=== PATIENT | female | born 1985 | race African-American/Black ===

== ENCOUNTER 2016-08-19 10:25 | Emergency (ER) | payer SELFPAY ==
[~2016-08-19] VITALS: Ht 165.1 cm; Wt 81.2 kg
[~2016-08-19 10:25] MED LIST: NAPR550T PO; ORPH100T PO
[2016-08-19 10:31] VITALS: BP 104/64
[2016-08-19] MEDS ORDERED: CYCL10TA2 PO (11:16)
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
== END 2016-08-19 11:23 | disposition home or self-care (01) ==
LOC: ER 10:42
DX: M54.5 Low back pain (principal); Z88.8 Allergy status to other drugs, medicaments and biological substances; V43.52XA Car driver injured in collision with other type car in traffic accident, initial encounter; Y93.89 Activity, other specified; Y99.8 Other external cause status; Y92.488 Other paved roadways as the place of occurrence of the external cause
CPT/HCPCS: 99283

== ENCOUNTER 2016-12-09 11:15 | Emergency (ER) | payer SELFPAY ==
[~2016-12-09] VITALS: Ht 165.1 cm; Wt 81.6 kg
[~2016-12-09 11:15] MED LIST changes: +CYCL10TA2 PO; +NAPR-682 PO; -NAPR550T PO
[2016-12-09 12:26] VITALS: BP 116/76
[2016-12-09] MEDS ORDERED: AMOX500C PO (13:12)
--- NOTE | 2016-12-09 13:12 | PHYS DOC ---
Past Medical History Past Medical History: Other Additional Past Medical Histor: heart murmur Past Surgical History: No Surgical History Alcohol Use: Occasionally Drug Use: None Adult General Chief Complaint Chief Complaint: TOOTH ACHE OR PAIN [facility] HPI Patient is a 31 year old [f__sex] who presents with [] Review of Systems Review of Systems Constitutional: Denies fever or chills [] Eyes: Denies change in visual acuity, redness, or eye pain [] HENT: Denies nasal congestion or sore throat [] Respiratory: Denies cough or shortness of breath [] Cardiovascular: No additional information not addressed in HPI [] GI: Denies abdominal pain, nausea, vomiting, bloody stools or diarrhea [] : Denies dysuria or hematuria [] Musculoskeletal: Denies back pain or joint pain [] Integument: Denies rash or skin lesions [] Neurologic: Denies headache, focal weakness or sensory changes [] Endocrine: Denies polyuria or polydipsia [] Allergies Allergies Allergies Coded Allergies Type Severity Reaction Last Updated Verified ibuprofen Allergy Intermediate hives 07/29/14 Yes Physical Exam Physical Exam Constitutional: Well developed, well nourished, no acute distress, non-toxic appearance. [] HENT: Normocephalic, atraumatic, bilateral external ears normal, oropharynx moist, no oral exudates, nose normal. [] Eyes: PERRLA, EOMI, conjunctiva normal, no discharge. [] Neck: Normal range of motion, no tenderness, supple, no stridor. [] Cardiovascular:Heart rate regular rhythm, no murmur [] Lungs & Thorax: Bilateral breath sounds clear to auscultation [] Abdomen: Bowel sounds normal, soft, no tenderness, no masses, no pulsatile masses. [] Skin: Warm, dry, no erythema, no rash. [] Back: No tenderness, no CVA tenderness. [] Extremities: No tenderness, no cyanosis, no clubbing, ROM intact, no edema. [] Neurologic: Alert and oriented X 3, normal motor function, normal sensory function, no focal deficits noted. [] Psychologic: Affect normal, judgement normal, mood normal. [] Current Patient Data Vital Signs Vital Signs Date Time Temp Pulse Resp B/P (MAP) Pulse Ox O2 Delivery O2 Flow Rate FiO2 12/09/16 12:26 98.0 76 20 100 Room Air 98.0 EKG EKG [] Radiology/Procedures Radiology/Procedures [] Course & Med Decision Making Course & Med Decision Making Pertinent Labs and Imaging studies reviewed. (See chart for details) [] Dragon Disclaimer Dragon Disclaimer This electronic medical record was generated, in whole or in part, using a voice recognition dictation system. Departure Departure Impression: Primary Impression: Fractured tooth Additional Impression: Bilateral hand pain Disposition: HOME, SELF-CARE Condition: STABLE Referrals: SANDY MONTES MD (PCP) Patient Instructions: Dental Pain, Yoov-[id number]-Egbj, Sprain Additional Instructions: Activity as tolerated Tylenol for pain and discomfort Antibiotics as prescribed Dental wax may be placed over the fractured tooth to help with pain Followup with dentist within the week Return to emergency department as needed for signs and symptoms that become worse. Scripts Amoxicillin (AMOXICILLIN) 500 Mg Capsule 1 CAP PO QID, #40 CAP Prov: DESI BALL APRN 12/09/16 Problem Qualifiers Primary Impression: Fractured tooth Encounter type: initial encounter Fracture type: closed Qualified Codes: S02.5XXA - Fracture of tooth (traumatic), initial encounter for closed fracture DESI BALL APRN Dec 09, 2016 13:12
== END 2016-12-09 13:18 | disposition home or self-care (01) ==
LOC: ER 11:15
DX: S02.5XXA Fracture of tooth (traumatic), initial encounter for closed fracture (principal); M79.641 Pain in right hand; M79.642 Pain in left hand; Z88.6 Allergy status to analgesic agent; X58.XXXA Exposure to other specified factors, initial encounter; Y93.89 Activity, other specified; Y92.89 Other specified places as the place of occurrence of the external cause; Y99.8 Other external cause status
CPT/HCPCS: 99283

== ENCOUNTER 2017-03-01 08:01 | Emergency (ER) | payer OTHER ==
[~2017-03-01] VITALS: Ht 165.1 cm; Wt 81.6 kg
[~2017-03-01 08:01] MED LIST changes: +AMOX500C PO
[2017-03-01 08:17] VITALS: BP 117/75
--- NOTE | 2017-03-01 08:46 | PHYS DOC ---
Past Medical History Past Medical History: Other Additional Past Medical Histor: heart murmur Past Surgical History: No Surgical History Alcohol Use: Occasionally Drug Use: None Adult General Chief Complaint Chief Complaint: Neck Pain HPI HPI Patient is a 32 year old female with no significant medical history who presents with 10 out of 10 right lateral neck pain that began yesterday when she bent down to pick a water bottle from the ground. Patient describes the pain as throbbing and constant. Denies any pain radiating to bilateral upper extremities. Denies any numbness or tingling to bilateral upper extremities. She is asking for something for pain. She also states she cannot go to work with this pain. Review of Systems Review of Systems Constitutional: Denies fever or chills [] Eyes: Denies change in visual acuity, redness, or eye pain [] HENT: Denies nasal congestion or sore throat [] Respiratory: Denies cough or shortness of breath [] Cardiovascular: No additional information not addressed in HPI [] GI: Denies abdominal pain, nausea, vomiting, bloody stools or diarrhea [] : Denies dysuria or hematuria [] Musculoskeletal: Right lateral neck pain Integument: Denies rash or skin lesions [] Neurologic: Denies headache, focal weakness or sensory changes [] All other systems were reviewed and found to be within normal limits, except as documented in this note. Allergies Allergies Allergies Coded Allergies Type Severity Reaction Last Updated Verified ibuprofen Allergy Intermediate hives 07/29/14 Yes Physical Exam Physical Exam Constitutional: Well developed, well nourished, no acute distress, non-toxic appearance. [] HENT: Normocephalic, atraumatic, bilateral external ears normal, oropharynx moist, no oral exudates, nose normal. [] Eyes: PERRLA, EOMI, conjunctiva normal, no discharge. [] Neck: Normal range of motion, diffuse paraspinal muscle tenderness to the right lateral spine, no midline cervical spine tenderness, supple, no stridor. [] Cardiovascular:Heart rate regular rhythm, no murmur [] Lungs & Thorax: Bilateral breath sounds clear to auscultation [] Abdomen: Bowel sounds normal, soft, no tenderness, no masses, no pulsatile masses. [] Skin: Warm, dry, no erythema, no rash. [] Back: No tenderness, no CVA tenderness. [] Extremities: No tenderness, no cyanosis, no clubbing, ROM intact, no edema. [] Neurologic: Alert and oriented X 3, normal motor function, normal sensory function, no focal deficits noted. [] Psychologic: Affect normal, judgement normal, mood normal. [] Current Patient Data Vital Signs Vital Signs Date Time Temp Pulse Resp B/P (MAP) Pulse Ox O2 Delivery O2 Flow Rate FiO2 03/01/17 08:17 98.4 74 18 117/75 (89) 98 98.4 EKG EKG [] Radiology/Procedures Radiology/Procedures [] Course & Med Decision Making Course & Med Decision Making Pertinent Labs and Imaging studies reviewed. (See chart for details) Patient is in the ED with right cervical strain after bending down yesterday to pick a water bottle from the ground. She is very insistent on having something for pain. Informed her i will send her home with an anti-inflammatory, a muscle relaxer and a steroid. She also wanted a note for work stating her job requires her to use her extremities which she feels she is not able to do with the neck pain. Gave her a note for work for 3 days. Provided a doctor's list for follow- up she states her PCP is retiring. Gave her a pain clinic for f/u as well. Recommended heating pad to her neck which she was resistant to. Informed her she can try ice if she doesn't want to do a heating pad. Dragon Disclaimer Dragon Disclaimer This electronic medical record was generated, in whole or in part, using a voice recognition dictation system. Departure Departure Impression: Primary Impression: Acute cervical myofascial strain Disposition: 01 HOME, SELF-CARE Condition: STABLE Referrals: KIMBERLEY HALL MD follow up in 1-2 weeks for neck pain Patient Instructions: Cervical Strain and Sprain with [facility] Additional Instructions: You were seen for cervical strain. Apply heat to the cervical spine. You can also apply ice if it feels better. Take the prescribed medicines as ordered. We provided you a doctor's list please follow up with a doctor from the list provided including a pain clinic doctor in 1-2 weeks Scripts Methylprednisolone (MEDROL) 4 Mg Tab.ds.pk 1 PKG PO UD, #1 PKG Prov: NAFISA SUMMERS [employer] 03/01/17 Cyclobenzaprine Hcl (CYCLOBENZAPRINE HCL) 10 Mg Tablet 1 TAB PO TID, #30 TAB Prov: NAFISA SUMMERS APRN 03/01/17 Diclofenac Sodium (DICLOFENAC SODIUM) 50 Mg Tablet. 1 TAB PO BID, #20 TAB 0 Refills Prov: NAFISA SUMMERS APRN 03/01/17 Problem Qualifiers Primary Impression: Acute cervical myofascial strain Encounter type: initial encounter Qualified Codes: S16.1XXA - Strain of muscle, fascia and tendon at neck level, initial encounter NAFISA SUMMERS APRN Mar 01, 2017 08:46
[2017-03-01] MEDS ORDERED: CYCL10TA2 PO (08:53)
[2017-03-01] MEDS ORDERED: DICL50TA4 PO (08:53)
[2017-03-01] MEDS ORDERED: METH4TAB2 PO (08:53)
== END 2017-03-01 09:01 | disposition home or self-care (01) ==
LOC: ER 08:01
DX: S16.1XXA Strain of muscle, fascia and tendon at neck level, initial encounter (principal); Z88.6 Allergy status to analgesic agent; X50.9XXA Other and unspecified overexertion or strenuous movements or postures, initial encounter; Y93.89 Activity, other specified; Y99.8 Other external cause status; Y92.89 Other specified places as the place of occurrence of the external cause
CPT/HCPCS: 99283

== ENCOUNTER 2017-09-07 08:27 | Emergency (ER) | payer OTHER | END 2017-09-07 09:34 | disposition home or self-care (01) | LOC: ER 08:27 | DX: G89.29 Other chronic pain (principal); M54.5 Low back pain; Z88.8 Allergy status to other drugs, medicaments and biological substances | CPT/HCPCS: 99283 ==

== ENCOUNTER → 2017-11-20 | Outpatient (CLI) | payer OTHER ==
[2017-09-07 08:36] VITALS: BP 117/80
[~2017-11-20] MED LIST changes: +DICL50TA4 PO; +METH4TAB2 PO; +PERFLUTREN PROTEIN-A MICROSPHR 0.22 MG/ML 3 ML VIAL. IV PRN
--- NOTE | 2017-11-20 09:24 | CARD ---
MR#: [id number] Date of Study: 11/20/2017 Ordering Physician: MIKAELA MOREIRA, Referring Physician: MIKAELA MOREIRA, Tech: PEDRO Pruitt APPROVED REPORT EXAM: Two-dimensional and M-mode echocardiogram with Doppler and color Doppler. Other Information Quality : GoodHR: 71bpm INDICATION Syncope 2D DIMENSIONS Left Atrium(2D)2.5 (1.6-4.0cm)IVSd0.9 (0.7-1.1cm) Aortic Root(2D)2.7 (2.0-3.7cm)LVDd3.9 (3.9-5.9cm) LVOT Diameter1.7 (1.8-2.4cm)PWd0.9 (0.7-1.1cm) IVSs1.4 (0.8-1.2cm)LVDs2.6 (2.5-4.0cm) FS (%) 35.1 %PWs1.3 (0.8-1.2cm) SV44.1 mlLVEF(%)65.1 (>50%) Aortic Valve AoV Peak Torres.128.7cm/sAoV VTI26.1cm AO Peak GR.6.6mmHgLVOT Peak Torres.104.4cm/s LVOT VTI 22.39cmAO Mean GR.3mmHg CARLIE (VMAX)1.36ke7XXY (VTI)1.85cm2 AI P 1/2 [id number] Mitral Valve MV E Rgegcvfv41.3cm/sMV E Peak Gr.18mmHg MV DECEL [id number] A Wivrumms35.5cm/s MV JYF07lvJ/A Ratio1.5 MVA (PHT)3.63cm2 TDI E/Lateral E'5.8E/Medial E'6.9 Pulmonary Valve PV Peak Yynvdunu684.7cm/sPV Peak Grad.5mmHg Tricuspid Valve TR P. [id number]/sRAP ROMWZEEC3ouVe TR Peak Gr.3nrFgQZRA02ylWz Pulmonary Vein S1 Kfdlncox65.2cm/sD2 Avcllmlp85.5cm/s LEFT VENTRICLE The left ventricle is normal size. There is normal left ventricular wall thickness. The left ventricu lar systolic function is normal and the ejection fraction is within normal range. EF 55% There is nor mal LV segmental wall motion. The left ventricular diastolic function and filling is normal for age. RIGHT VENTRICLE The right ventricle is normal size. The right ventricular systolic function is normal. ATRIA The left atrium size is normal. The right atrium size is normal. The interatrial septum is intact wit h no evidence for an atrial septal defect or patent foramen ovale as noted on 2-D or Doppler imaging. AORTIC VALVE The aortic valve is normal in structure. Doppler and Color Flow revealed trace aortic regurgitation. There is no significant aortic valvular stenosis. There is no aortic valvular vegetation. MITRAL VALVE The mitral valve is normal in structure and function. There is no evidence of mitral valve prolapse. There is no mitral valve stenosis. Doppler and Color-flow revealed trace mitral regurgitation. TRICUSPID VALVE The tricuspid valve is normal in structure. Doppler and Color Flow revealed trace tricuspid regurgita tion. There is no tricuspid valve prolapse or vegetation. There is no tricuspid valve stenosis. PULMONIC VALVE The pulmonic valve is not well visualized. Doppler and Color Flow revealed no pulmonic valvular regur gitation. There is no pulmonic valvular stenosis. GREAT VESSELS The aortic root is normal in size. The IVC is dilated and collapses >50% with inspiration. PERICARDIAL EFFUSION There is no pleural effusion. There is no evidence of significant pericardial effusion. Critical Notification Critical Value: No <Conclusion> The left ventricular systolic function is normal and the ejection fraction is within normal range. EF 55% There is normal LV segmental wall motion. Signed by : Mikaela Moreira, Electronically Approved : 11/20/2017 09:23:11
== END | disposition home or self-care (01) ==
LOC: ECHO 08:05
PROVIDERS: ATTEND Internal Medicine Cardiovascular Disease
DX: R55 Syncope and collapse (principal)
CPT/HCPCS: 93306